=== PATIENT | male | born 1935 | race Caucasian/White ===

== ENCOUNTER → 2020-11-17 10:35 | Outpatient (CLI) | payer OTHER, SELFPAY ==
--- NOTE | ~2020-11-17 | XR_ITS ---
XR abdomen/kub 1V DATE: 11/17/2020 10:49 INDICATION: Recurrent kidney stones TECHNIQUE: AP projection, 2 views COMPARISON: None FINDINGS: Approximately 2.3 x 6.5 mm calcification overlies the lower pole left kidney, possibly a le ft nonobstructing renal calculus. No bowel obstruction. The psoas shadows are intact. No visceromegaly is evident. Diffuse osteopenia. 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 The lung bases appear clear. IMPRESSION: Possible lower pole left renal nephrolithiasis Reviewed, dictated and finalized at [facility]. Reviewed, dictated and finalized at location [facility].
== END ==
PROVIDERS: Visit Provider Urology
DX: N20.0 Calculus of kidney (principal)
CPT/HCPCS: 74018

== ENCOUNTER 2021-06-02 08:58 | Outpatient (CLI) | payer OTHER, SELFPAY | END 2021-06-02 08:59 | disposition home or self-care (01) | LOC: ANHAUDIO 08:59 | PROVIDERS: PCP Emergency Medicine; Visit Provider Emergency Medicine | DX: H91.90 Unspecified hearing loss, unspecified ear (principal) | CPT/HCPCS: 92557; 92567 ==

== ENCOUNTER 2021-10-19 10:23 | Emergency (ER) | payer OTHER, SELFPAY ==
[2021-10-19 10:37] VITALS: BP 147/78; PULSE 73; RESP 18; TEMP 36.8; O2SAT 97
[2021-10-19] MEDS: TETANUS,DIPHTHERIA,AC PERTUSSIS ADULT (0.5 ML) BOOSTRIX IM (11:07)
--- NOTE | 2021-10-19 11:22 | ED.WOUNDLAC ---
HPI - Wound/Laceration General Chief Complaint: Wound/Laceration Stated Complaint: Cut Lower Lt Leg Time Seen by Provider: 10/19/21 11:10 Source: patient, RN notes reviewed and old records reviewed History of Present Illness HPI narrative: 86-year-old male who presents to [facility] with complaints of wound to left lateral lower leg for 2-week duration. Patient states that he scraped his left lower leg on a alanis nail and he has been cleansing wound with antibacterial soap and applying Neosporin ointment with no improvement. Patient states that now he has noticed some redness of tissue around wound. He reports that his tetanus needs updated also. He denies any known fevers chills or sweats. or any increase pain to wound area or left leg. Onset (ago): week(s) (2) Location: other Extremity Location: Left: lower leg (Lateral aspect) Place: home Patient tetanus UTD: No Context: accidental Treatments prior to arrival: other (Neosporin ointment) Related Data Home Medications Medication Instructions Recorded Confirmed cholecalciferol (vitamin D3) 50 50 mcg PO DAILY 12/31/19 10/19/21 mcg (2,000 unit) tablet finasteride 5 mg tablet 5 mg PO DAILY 12/31/19 10/19/21 tamsulosin 0.4 mg capsule See Rx Instructions .ROUTE .COMPLEX 12/31/19 10/19/21 vitamins A,C,F-ixbd-mpocyn 14,320 See Rx Instructions .ROUTE .COMPLEX 12/31/19 10/19/21 unit-226 mg-200 unit capsule Allergies Allergy/AdvReac Type Severity Reaction Status Date / Time No Known Allergies Allergy Verified 10/19/21 10:46 Review of Systems Review of Systems: CONSTITUTIONAL: Denies fever, chills, or sweats. EYES: Denies visual changes, redness, or discharge. ENT: Denies rhinorrhea, congestion, sore throat, or otalgia. CARDIOVASCULAR: Denies chest pain, palpitations, or edema. RESPIRATORY: Denies cough or dyspnea. GASTROINTESTINAL: Denies abdominal pain, nausea, vomiting, or diarrhea. GENITOURINARY: Denies dysuria or hematuria. SKIN: Denies rash or itching.1cmX0.5cm red crusty wound to left anterior lateral lower leg with surrounding redness of skin MUSCULOSKELETAL: Denies back pain, joint pain, or myalgia. NEUROLOGIC: Denies headache, numbness, or weakness. PSYCHIATRIC: Positive history of anxiety or depression. All systems reviewed & are unremarkable except as noted in HPI and below PMFSH Past Medical History Medical History BPH (benign prostatic hyperplasia) H/O renal calculi Hyperglycemia Family History Family History Father Cerebrovascular accident, Onset Age: 77 Mother Family history of Alzheimer's disease, Onset Age: 84 Sibling Family history of pancreatic cancer Social History Social History Social History: Patient drinks 2 cups of coffee per day, and exercises daily. Smoking status: Former smoker Second hand tobacco smoke exposure: No Smoking end date: 08/01/69 Alcohol intake: former Substance use: never Additional living arrangements comments: Patient is Gender identity (if verbalized by the patient): Male Sexual Orientation (if Verbalized by the Patient): Straight or Heterosexual Comments At time of signature, agree with nursing past medical, surgical, social and family history. There is no relevant family history pertinent to the presenting complaint Exam Narrative: GENERAL: Well-appearing, well-nourished, and in no acute distress. HEAD: Normocephalic, atraumatic. EYES: PERRLA and EOMI. ENT: Nares clear, no rhinorrhea or epistaxis. Mucous membranes moist.TM's normal with dull light reflex, throat normal with no lesions or exudates, no tonsil swelling. NECK: Supple. no lymphadenopathy CHEST: Clear to auscultation. No respiratory distress.SAO2 97% on room air HEART: Regular rate and rhythm. No murmur heard. Normal peripheral pulse
== END 2021-10-19 11:37 | disposition home or self-care (01) ==
PROVIDERS: Emergency Provider Registered Nurse; PCP Emergency Medicine
DX: L08.9 Local infection of the skin and subcutaneous tissue, unspecified (principal); S81.802A Unspecified open wound, left lower leg, initial encounter; W45.0XXA Nail entering through skin, initial encounter; Z23 Encounter for immunization; N40.0 Benign prostatic hyperplasia without lower urinary tract symptoms
CPT/HCPCS: 90471; 90715; 99213; G0463

== ENCOUNTER 2021-10-30 10:05 | Emergency (ER) | payer OTHER, SELFPAY ==
[2021-10-30 10:33] VITALS: BP 150/79; PULSE 71; RESP 18; TEMP 36.6; O2SAT 96
--- NOTE | 2021-10-30 10:46 | ED.WOUNDLAC ---
HPI - Wound/Laceration General Chief Complaint: Extremity Injury, Lower Stated Complaint: lt leg pain Time Seen by Provider: 10/30/21 10:40 Source: patient Mode of arrival: ambulatory Limitations: no limitations History of Present Illness HPI narrative: Mr. Ureña is a 86-year-old male patient presenting to the clinic today for a wound recheck to his left lower leg. He reports he was seen approximately 10 days ago and was given a prescription for antibiotics and wanted to come in and have his wound rechecked since he has finished antibiotics and there is still some mild redness. He denies any drainage, increasing pain or increasing swelling. Just finished his antibiotics yesterday. Related Data Home Medications Medication Instructions Recorded Confirmed cholecalciferol (vitamin D3) 50 50 mcg PO DAILY 12/31/19 10/19/21 mcg (2,000 unit) tablet finasteride 5 mg tablet 5 mg PO DAILY 12/31/19 10/19/21 tamsulosin 0.4 mg capsule See Rx Instructions .ROUTE .COMPLEX 12/31/19 10/19/21 vitamins A,C,G-jdkv-grmrkm 14,320 See Rx Instructions .ROUTE .COMPLEX 12/31/19 10/19/21 unit-226 mg-200 unit capsule Allergies Allergy/AdvReac Type Severity Reaction Status Date / Time No Known Allergies Allergy Verified 10/30/21 10:50 Review of Systems Review of Systems: Pertinent positives per HPI. Patient denies any fever, chills, rash, headache, visual changes, dizziness, cough, runny nose, sore throat, shortness of breath, chest pain, palpitations, nausea, vomiting, diarrhea, constipation, abdominal pain, or any urinary issues. [facility] Past Medical History Medical History BPH (benign prostatic hyperplasia) H/O renal calculi Hyperglycemia Family History Family History Father Cerebrovascular accident, Onset Age: 77 Mother Family history of Alzheimer's disease, Onset Age: 84 Sibling Family history of pancreatic cancer Social History Social History Social History: Patient drinks 2 cups of coffee per day, and exercises daily. Smoking status: Former smoker Second hand tobacco smoke exposure: No Smoking end date: 08/01/69 Alcohol intake: former Substance use: never Additional living arrangements comments: Patient is Gender identity (if verbalized by the patient): Male Sexual Orientation (if Verbalized by the Patient): Straight or Heterosexual Comments At the time of my signature, I reviewed and agree with the nursing past medical, surgical, social, and family history. There is no relevant family history pertinent to the patient complaint. Exam Narrative: General: Well-developed, well nourished, in no apparent distress Cardio: Regular rate and rhythm, s1 and s2 normal, no murmur appreciated. Resp: Clear to auscultation bilaterally, no rhonchi, rales, wheezing or rubs. Integumentary: [place], warm, and dry, intact without lesion, no rashes. Mild redness and swelling without induration to the left lower lateral/anterior leg without discharge, tenderness, or streaking. Has a healthy appearing scab noted over the wound. Course Course Emergency Course: Portions of this record may have been created with voice recognition software. Level of Care: Express Care Visit Vital Signs Vital signs: Vital Signs Temperature 36.6 C 10/30/21 10:33 Pulse Rate 71 10/30/21 10:33 Respiratory Rate 18 10/30/21 10:33 Blood Pressure 150/79 H 10/30/21 10:33 Pulse Oximetry 96 10/30/21 10:33 Temperature 36.6 C 10/30/21 10:33 Pulse Rate 71 10/30/21 10:33 Respiratory Rate 18 10/30/21 10:33 Blood Pressure 150/79 H 10/30/21 10:33 Pulse Oximetry 96 10/30/21 10:33 Vital signs reviewed MDM - Wound/Laceration MDM Narrative Medical decision making narrative: At the time of assessment chinyere
== END 2021-10-30 10:54 | disposition home or self-care (01) ==
PROVIDERS: Emergency Provider Nurse Practitioner Family; PCP Emergency Medicine
DX: S81.802D Unspecified open wound, left lower leg, subsequent encounter (principal); X58.XXXD Exposure to other specified factors, subsequent encounter; N40.0 Benign prostatic hyperplasia without lower urinary tract symptoms; Z87.891 Personal history of nicotine dependence
CPT/HCPCS: 99211; G0463

== ENCOUNTER 2021-12-30 17:32 | Emergency (ER) | payer OTHER, SELFPAY ==
--- NOTE | 2021-12-30 17:35 | ED.URI ---
HPI - URI/Sore Throat General Chief Complaint: Upper Respiratory Infection Stated Complaint: fever,congestion Time Seen by Provider: 12/30/21 17:35 Source: patient Mode of arrival: ambulatory Limitations: no limitations History of Present Illness HPI Narrative: Mr. Ureña is a an 86-year-old male patient presenting to the clinic today with complaints of nasal congestion and pressure for a couple months. He reports that he just felt feverish a couple days ago and reports that he cannot smell. He is having a nonproductive cough with this and blowing out yellow nasal drainage. He denies any headaches. He denies any known exposure to anyone with COVID, influenza, or strep. He would like COVID testing. MD elicited complaint: fever, cough, nasal congestion and sinus pain Related Data Home Medications Medication Instructions Recorded Confirmed cholecalciferol (vitamin D3) 50 50 mcg PO DAILY 12/31/19 12/30/21 mcg (2,000 unit) tablet finasteride 5 mg tablet 5 mg PO DAILY 12/31/19 12/30/21 tamsulosin 0.4 mg capsule See Rx Instructions .Route .COMPLEX 12/31/19 12/30/21 vitamins A,C,Y-ijpi-ilnxbl 14,320 See Rx Instructions .Route .COMPLEX 12/31/19 12/30/21 unit-226 mg-200 unit capsule (PreserVision AREDS) Allergies Allergy/AdvReac Type Severity Reaction Status Date / Time No Known Allergies Allergy Verified 12/30/21 17:52 Review of Systems Review of Systems: Pertinent positives per HPI. Patient denies any rash, headache, visual changes, dizziness, sore throat, shortness of breath, chest pain, palpitations, nausea, vomiting, diarrhea, constipation, abdominal pain, or any urinary issues. [facility] Past Medical History Medical History (Updated 12/30/21 @ 17:55 by Saturnino Brizuela APRN) BPH (benign prostatic hyperplasia) H/O renal calculi Hyperglycemia Family History Family History Father Cerebrovascular accident, Onset Age: 77 Mother Family history of Alzheimer's disease, Onset Age: 84 Sibling Family history of pancreatic cancer Social History Social History Social History: Patient drinks 2 cups of coffee per day, and exercises daily. Smoking status: Former smoker Second hand tobacco smoke exposure: No Smoking end date: 08/01/69 Alcohol intake: former Substance use: never Additional living arrangements comments: Patient is Gender identity (if verbalized by the patient): Male Sexual Orientation (if Verbalized by the Patient): Straight or Heterosexual Comments At the time of my signature, I reviewed and agree with the nursing past medical, surgical, social, and family history. There is no relevant family history pertinent to the patient complaint. Exam Narrative: General: Well-developed, well nourished, in no apparent distress Head: Normocephalic, atraumatic Eyes: Pupils equally round and reactive to light bilaterally, EOM intact, sclera and conjunctive clear, no discharge, lids normal Ears: TMs intact and clear, ear canals clear, no drainage, grossly hearing normal. Nose: Nares patent, yellow discharge, moderate inflammation, sinus tenderness over the maxillary and frontal sinuses Mouth: Oral pharynx without lesions or masses, good dentition, MMM. Postnasal drip Neck: Supple, trachea midline, no enlargement of anterior or posterior cervical nodes, no thyroid masses or goiter palpable. Cardio: Regular rate and rhythm, s1 and s2 normal, no murmur appreciated. Resp: Clear to auscultation bilaterally, no rhonchi, rales, wheezing or rubs Course Course Emergency Course: Portions of this record may have been created with voice recognition software. Level of Care: Express Care Visit Vital Signs Vital signs: Vital signs reviewed MDM - URI/Sore Throat MDM Narrative Medical decision making narrative: At the time of visit renata
[2021-12-30 17:47] VITALS: BP 168/64; PULSE 83; RESP 18; TEMP 36.6; O2SAT 96
== END 2021-12-30 18:11 | disposition home or self-care (01) ==
PROVIDERS: Emergency Provider Nurse Practitioner Family; PCP Emergency Medicine
DX: J32.0 Chronic maxillary sinusitis (principal); Z87.891 Personal history of nicotine dependence; Z20.822 Contact with and (suspected) exposure to COVID-19
CPT/HCPCS: 87426; 99213; C9803; G0463

== ENCOUNTER 2022-01-10 12:21 | Emergency (ER) | payer OTHER, SELFPAY ==
--- NOTE | ~2022-01-10 | XR_ITS ---
EXAMINATION: XR chest 2V Exam Date/Time: 01/10/2022 13:02 CDT HISTORY: cough, congestion Comparison: Rib x-rays 11/28/2014. RESULT: Lines, tubes, and devices: None. Lungs and pleura: Ill-defined mid and lower lung groundglass opacities, greater on the right. Nodula r opacity in the right upper lung measuring 1.7 cm. Cardiomediastinal silhouette: Stable cardiomediastinal silhouette. Other: No acute osseous or upper abdominal finding. IMPRESSION: Pulmonary opacities may reflect summation artifact versus atypical/viral infection. Right upper lobe pulmonary nodule, recommend nonemergent, outpatient noncontrasted chest CT for further evaluation. Reviewed, dictated and finalized at location [facility]. IMPRESSION: Pulmonary opacities may reflect summation artifact versus atypical/viral infect ion. Right upper lobe pulmonary nodule, recommend nonemergent, outpatient nonco ntrasted chest CT for further evaluation.
[2022-01-10 12:43] VITALS: BP 146/61; PULSE 69; RESP 18; TEMP 37.1; O2SAT 96
--- NOTE | 2022-01-10 13:30 | ED.GENADULT ---
HPI - General Adult General Chief complaint: Upper Respiratory Infection Stated complaint: cough,chest congestion Source: patient Mode of arrival: ambulatory Limitations: no limitations History of Present Illness HPI narrative: Patient presents for evaluation of respiratory symptoms. He was evaluated here on 12/30/2021 for sinus congestion, loss of sense of taste and smell. He was COVID-negative. He was diagnosed with maxillary sinusitis and discharged with Augmentin. He completed the medication without improvement in his symptoms thereafter. Currently reports sinus congestion, clear rhinorrhea, loss of sense of taste or smell and nonproductive cough. He denies any fever, chills, nausea, vomiting, otalgia, sore throat, shortness of breath or chest pain. He is not taking any medications for his symptoms. No recent sick contacts. He is a former smoker. No hx of COVID. He has received COVID vaccination x 2 and his booster. No additional complaints or concerns. Related Data Home Medications Medication Instructions Recorded Confirmed cholecalciferol (vitamin D3) 50 50 mcg PO DAILY 12/31/19 01/10/22 mcg (2,000 unit) tablet finasteride 5 mg tablet 5 mg PO DAILY 12/31/19 01/10/22 tamsulosin 0.4 mg capsule See Rx Instructions .Route .COMPLEX 12/31/19 01/10/22 vitamins A,C,P-qsol-wsjwkj 14,320 See Rx Instructions .Route .COMPLEX 12/31/19 01/10/22 unit-226 mg-200 unit capsule (PreserVision AREDS) Allergies Allergy/AdvReac Type Severity Reaction Status Date / Time No Known Allergies Allergy Verified 01/10/22 12:52 Review of Systems Review of Systems: CONSTITUTIONAL: Denies fever, chills, or sweats. EYES: Denies visual changes, redness, or discharge. ENT: Reports loss of sense of taste and smell. Reports sinus congestion and clear rhinorrhea. CARDIOVASCULAR: Denies chest pain, palpitations, or edema. RESPIRATORY: Reports nonproductive cough. Denies dyspnea. GASTROINTESTINAL: Denies abdominal pain, nausea, vomiting, or diarrhea. GENITOURINARY: Denies dysuria or hematuria. SKIN: Denies rash or itching. MUSCULOSKELETAL: Denies back pain, joint pain, or myalgia. NEUROLOGIC: Denies headache, numbness, dizziness, or weakness. PSYCHIATRIC: Denies anxiety or depression. [facility] Past Medical History Medical History (Updated 01/10/22 @ 13:45 by Yovanny Benitez [facility], ) BPH (benign prostatic hyperplasia) H/O renal calculi History of prostate cancer Hyperglycemia Surgical History Surgical History No pertinent past surgical history Family History Family History Father Cerebrovascular accident, Onset Age: 77 Heart disease Acute myocardial infarction Mother Family history of Alzheimer's disease, Onset Age: 84 Sibling Family history of pancreatic cancer Social History Social History Social History: Patient drinks 2 cups of coffee per day, and exercises daily. Smoking status: Former smoker Second hand tobacco smoke exposure: No Smoking end date: 08/01/69 Alcohol intake: former Substance use: never Living arrangements: alone Additional living arrangements comments: Patient is Gender identity (if verbalized by the patient): Male Sexual Orientation (if Verbalized by the Patient): Straight or Heterosexual Spiritual care concerns: No Exam Narrative: GENERAL: Well-appearing, well-nourished, and in no acute distress. HEAD: Normocephalic, atraumatic. EYES: PERRLA and EOMI. ENT: Nares clear, no rhinorrhea or epistaxis. Mucous membranes moist. Oropharynx without tonsillar hypertrophy exudate or other lesions. Bilateral TMs pearly botello nonbulging NECK: Supple. No adenopathy or masses. No carotid bruits or JVD CHEST: Clear to auscultation. No respiratory distress. No wheezes rales or
== END 2022-01-10 13:53 | disposition home or self-care (01) ==
PROVIDERS: Emergency Provider Nurse Practitioner; PCP Emergency Medicine
DX: U07.1 COVID-19 (principal); Z87.891 Personal history of nicotine dependence; R91.1 Solitary pulmonary nodule; N40.0 Benign prostatic hyperplasia without lower urinary tract symptoms; Z85.46 Personal history of malignant neoplasm of prostate
CPT/HCPCS: 71046; 87426; 87804; 99213; C9803; G0463

== ENCOUNTER 2022-01-18 10:41 | Outpatient (CLI) | payer OTHER, SELFPAY ==
--- NOTE | 2022-01-18 11:30 | ECG_ITS ---
Measurements Intervals [place] Rate: 73 P: [place]: 0 QRS: 1 QRSD: 139 T: 13 QT: 412 QTc: 456 Interpretive Statements SINUS RHYTHM WITH FREQUENT PREMATURE ATRIAL CONTRACTIONS POSSIBLE JUNCTIONAL ESCAPE BEAT NONSPECIFIC INTRAVENTRICULAR CONDUCTION DELAY CANNOT RULE OUT ANTERIOR MYOCARDIAL INFARCTION, AGE INDETERMINATE NONSPECIFIC ST AND T-WAVE ABNORMALITY ABNORMAL ECG NO PREVIOUS ECG AVAILABLE FOR COMPARISON Electronically Signed On 01-18-2022 14:47:38 CDT by Henry Good M.D.
== END 2022-01-18 10:42 | disposition home or self-care (01) ==
PROVIDERS: PCP Emergency Medicine; Visit Provider Emergency Medicine
DX: R42 Dizziness and giddiness (principal); I45.9 Conduction disorder, unspecified
CPT/HCPCS: 93005

== ENCOUNTER 2022-01-20 16:02 | Outpatient (CLI) | payer OTHER, SELFPAY ==
--- NOTE | ~2022-01-20 | CT_ITS ---
EXAMINATION:CT diagnostic chest wo con DATE: 01/20/2022 16:25 INDICATION: Right upper lobe pulmonary nodule. TECHNIQUE: Computed tomography (CT) of the chest was performed without intravenous contrast. Automate d exposure control and iterative reconstruction technique were employed. The dose-length product (DLP ) was 69.23 mGy-cm. COMPARISON: Chest 2 views 01/10/2022 FINDINGS: There is mild scarring at the lung apices. There is a 12 mm nodule in right upper lobe. The re is a 4 mm nodule at minor fissure. There is a 3 mm nodule in left upper lobe. No pleural effusion. The heart size is normal. There are coronary artery calcifications. No pericardial effusion. There i s mild bilateral gynecomastia. There are gallstones in the gallbladder, which is normal in size. Ther e is mild thoracic spondylosis. There is mild atelectasis bilaterally. IMPRESSION: 1. 12 mm nodule in right lung upper lobe suspicious for primary bronchogenic carcinoma. CT-guided bio psy is recommended. Reviewed, dictated and finalized at location [facility]. IMPRESSION: 1. 12 mm nodule in right lung upper lobe suspicious for primary bronchogenic ca rcinoma. CT-guided biopsy is recommended.
== END 2022-01-20 16:03 | disposition home or self-care (01) ==
PROVIDERS: PCP Emergency Medicine; Visit Provider Emergency Medicine
DX: R91.1 Solitary pulmonary nodule (principal)
CPT/HCPCS: 71250

== ENCOUNTER 2022-03-02 07:31 | Outpatient (CLI) | payer OTHER, SELFPAY ==
--- NOTE | 2022-03-02 07:39 | ECHO_ITS ---
Patient Info Name: Apolinar Ureña Age: 87 years : 1935 Gender: Male Ht: 67 in Wt: 135 lbs BSA: 1.70 m2 HR: 65 bpm BP: 158 / 71 mmHg Heart Rhythm: Sinus Rhythm Technical Quality: Fair Exam Date: 03/02/2022 7:50 AM Exam Location: [facility] Patient Status: Outpatient Admit Date: 03/02/2022 Staff Ordering Physician: Josué Waddell DO Ticket Sales Agent: Renetta Altamirano RDCS Attending Provider: Josué Waddell DO Referring Physician: Bairon DANEIL; Exam Type: CA echo doppler color flow Study Info Indications - palpitations Complete two-dimensional, color flow and Doppler transthoracic echocardiogram is performed. Summary 1. Complete two-dimensional, color flow and Doppler transthoracic echocardiogram is performed. 2. Left ventricular chamber dimension is severely enlarged. 3. Left ventricular systolic function is severely reduced, estimated at 30-35%. 4. Left ventricular septal wall motion is abnormal with septal motion related to bundle branch block. 5. The left ventricular diastolic function is grade I diastolic dysfunction. 6. E/e' 16 is elevated. 7. There is mild aortic valve regurgitation. 8. There is mild mitral valve regurgitation. 9. There is mild tricuspid valve regurgitation. 10. No pulmonary hypertension, estimated pulmonary arterial systolic pressure is 38 mmHg. 11. There is mild pulmonic regurgitation. Left Ventricle E/e' 16 is elevated. Left ventricular chamber dimension is severely enlarged. Left ventricular systolic function is severely reduced, estimated at 30-35%. Left ventricular septal wall motion is abnormal with septal motion related to bundle branch block. The left ventricular diastolic function is grade I diastolic dysfunction. Right Ventricle Right ventricular systolic function is normal and with normal TAPSE 2.5 cm. Right ventricular chamber dimension is normal. Left Atria Left atrial chamber dimension is normal. Right Atria Right atrial chamber dimension is normal. Aortic Valve The aortic valve is trileaflet. There is no aortic valve stenosis. There is mild aortic valve regurgitation. Pulmonic Valve There is mild pulmonic regurgitation. Mitral Valve There is no mitral valve stenosis. There is mild mitral valve regurgitation. Tricuspid Valve There is mild tricuspid valve regurgitation. No pulmonary hypertension, estimated pulmonary arterial systolic pressure is 38 mmHg. Pericardium/Pleural There is no pericardial effusion. Inferior Vena Cava Normal inferior vena cava with >50% collapse upon inspiration consistent with normal right atrial pressure, 5 mmHg. Aorta The aortic root size at the sinus of Valsalva is normal. Left Ventricular Outflow Tract Name Value Normal LVOT 2D LVOT Diameter 2.0 cm LVOT Doppler LVOT Peak Gradient 3 mmHg LVOT Mean Gradient 1 mmHg LVOT VTI 14 cm LVOT VTI/AV VTI Ratio 0.5 LVOT Stroke Volume 46 ml LVOT CO 2.4 l/min
== END 2022-03-02 07:32 | disposition home or self-care (01) ==
PROVIDERS: PCP Emergency Medicine; Visit Provider Internal Medicine Cardiovascular Disease
DX: R00.2 Palpitations (principal); I34.0 Nonrheumatic mitral (valve) insufficiency; I35.1 Nonrheumatic aortic (valve) insufficiency; I36.1 Nonrheumatic tricuspid (valve) insufficiency
CPT/HCPCS: 93306

== ENCOUNTER 2022-03-19 08:06 | Outpatient (CLI) | payer OTHER, SELFPAY ==
--- NOTE | ~2022-03-19 | NM_ITS ---
EXAMINATION: NM tommy stress w perfusion DATE: 03/19/2022 10:38 INDICATION: Heart disease TECHNIQUE: Rest images were obtained following intravenous administration of 10.3 mCi Tc99m tetrofosm in (Myoview). The patient was infused intravenously with Lexiscan (Regadenoson). Then, 32.7 mCi Tc99m tetrofosmin (Myoview) was administered intravenously, and stress images were obtained in supine posi tion. Repeat post stress images were obtained in prone position. Data was reconstructed into short ax is and horizontal and vertical long axis SPECT images. Gated SPECT images were also obtained. COMPARISON: None. FINDINGS: Small mild nonreversible perfusion defect consistent with infarct at the apical septal segm ent with adjacent mild reversible ischemia at the mid anteroseptal segment. Mild left ventricular enl argement with calculated end-diastolic volume of 179 mm. There is global hypokinesis with mild to mod erately decreased left ventricular ejection fraction measuring 31%. IMPRESSION: 1. Small region of mild ischemia at the mid anteroseptal wall contiguous with a small nonreversible i nfarct at the apical septal segment. 2. Mild left ventricular enlargement and global hypokinesis with mild to moderately decreased left ve ntricular ejection fraction measuring 31%. Reviewed, dictated and finalized at location A. IMPRESSION: 1. Small region of mild ischemia at the mid anteroseptal wall contiguous with a small nonreversible infarct at the apical septal segment. 2. Mild left ventricular enlargement and global hypokinesis with mild to modera tely decreased left ventricular ejection fraction measuring 31%.
--- NOTE | 2022-03-19 08:28 | EST_ITS ---
Patient Info Name: Apolinar Ureña Age: 87 years : 1935 Gender: Male Ht: 67 in Wt: 140 lbs BSA: 1.73 m2 HR: 69 bpm BP: 119 / 84 mmHg Heart Rhythm: Left Bundle Branch Block Exam Date: 03/19/2022 9:23 AM Exam Location: [facility] Stress Patient Status: Outpatient Admit Date: 03/19/2022 Staff Ordering Physician: Josué Waddell DO Attending Provider: Josué Waddell DO Exercise Technologist: Sharon Wu CT Exercise Physician: Josué Waddell DO Exam Type: CA stress tommy w NM Study Info Indications Z13.6 - Encounter for screening for cardiovascular disorders A regadenoson stress test was performed. Summary 1. 1. Inconclusive lexiscan stress test for ischemic ST changes by ECG criteria due to baseline LBBB. 2. 2. Stable hemodynamics throughout the test. 3. 3. Nuclear scan to follow and will be reported separately. Please correlate with it. 4. 4. Patient informed of the above results. Protocol: Lexiscan Stress ECG Details Stage: REST Duration (min): 2 min : 18 sec HR (bpm): 67 SBP (mmHg): 119 DBP (mmHg): 84 Stage: REST Duration (min): 18 min : 30 sec HR (bpm): 66 SBP (mmHg): 119 DBP (mmHg): 84 Stage: STAGE 1 Duration (min): 1 min : 0 sec HR (bpm): 75 SBP (mmHg): 137 DBP (mmHg): 99 Stage: RECOVERY Duration (min): 1 min : 0 sec HR (bpm): 84 SBP (mmHg): 137 DBP (mmHg): 99 Stage: RECOVERY Duration (min): 2 min : 0 sec HR (bpm): 80 SBP (mmHg): 137 DBP (mmHg): 99 Stage: RECOVERY Duration (min): 3 min : 0 sec HR (bpm): 79 SBP (mmHg): 165 DBP (mmHg): 90 Stage: RECOVERY Duration (min): 3 min : 7 sec HR (bpm): 76 SBP (mmHg): 165 DBP (mmHg): 90 Rest HR: 66 bpm Peak HR: 88 bpm Rest Sys BP: 119 mmHg Peak Sys BP: 165 mmHg Max Pred HR: 135 bpm % Max Pred HR: 65 % Target HR: 115 bpm Max RPP: 14,520 bpm*mmHg Termination Reason: Completed protocol Cardiac Symptoms: Shortness of breath Total Time: 1 min : 0 sec Rest Vuong BP: 84 mmHg Peak Vuong BP: 90 mmHg Total Dose: 0.4 mg Resting ECG Sinus rhythm, LBBB. Stress ECG No ST changes. Arrhythmias None. Report Signatures
== END 2022-03-19 08:07 | disposition home or self-care (01) ==
PROVIDERS: PCP Emergency Medicine; Visit Provider Internal Medicine Cardiovascular Disease
DX: Z13.6 Encounter for screening for cardiovascular disorders (principal); I51.89 Other ill-defined heart diseases
CPT/HCPCS: 78452; 93017; A9502

== ENCOUNTER 2022-06-17 13:31 | Outpatient (CLI) | payer OTHER, SELFPAY ==
--- NOTE | 2022-06-17 13:56 | ECHO_ITS ---
Patient Info Name: Apolinar Ureña Age: 87 years : 1935 Gender: Male Ht: 67 in Wt: 145 lbs BSA: 1.77 m2 HR: 69 bpm BP: 121 / 64 mmHg Technical Quality: Good Exam Date: 06/17/2022 2:24 PM Exam Location: [facility] Patient Status: Outpatient Admit Date: 06/17/2022 Staff Ordering Physician: Josué Waddell DO Developer Evangelist: Elaine Guajardo RDCS Attending Provider: Josué Waddell DO Referring Physician: Bairon DANIEL; Exam Type: CA echo doppler color flow Study Info Indications I51.9 - Heart disease, unspecified Complete two-dimensional, color flow and Doppler transthoracic echocardiogram is performed. Summary 1. Complete two-dimensional, color flow and Doppler transthoracic echocardiogram is performed. 2. Left ventricular chamber dimension is moderately enlarged. 3. Left ventricular systolic function is moderately reduced, estimated at 35-40%. 4. There is mildly increased left ventricular wall thickness. 5. The left ventricular diastolic function is grade II diastolic dysfunction. 6. E/e' 10 is mildly elevated. 7. Global longitudinal strain is abnormal at -10.8%. 8. Left atrial chamber dimension is mildly enlarged. 9. Right atrial chamber dimension is mildly enlarged. 10. There is mild aortic valve sclerosis. 11. There is mild aortic valve regurgitation. 12. There is mild mitral valve regurgitation. 13. There is mild tricuspid valve regurgitation. 14. Moderate pulmonary hypertension, estimated pulmonary arterial systolic pressure is 50 mmHg. 15. Small atheroma in posterior aortic root. 16. Dilated inferior vena cava with <50% collapse upon inspiration consistent with significantly elevated right atrial pressure, 15 mmHg. Left Ventricle E/e' 10 is mildly elevated. Global longitudinal strain is abnormal at -10.8%. Left ventricular chamber dimension is moderately enlarged. Left ventricular systolic function is moderately reduced, estimated at 35-40%. There is mildly increased left ventricular wall thickness. The left ventricular diastolic function is grade II diastolic dysfunction. Right Ventricle Right ventricular chamber dimension is normal. Right ventricular systolic function is normal. Left Atria Left atrial chamber dimension is mildly enlarged. Right Atria Right atrial chamber dimension is mildly enlarged. Aortic Valve The aortic valve is trileaflet. There is mild aortic valve sclerosis. There is no aortic valve stenosis. There is mild aortic valve regurgitation. Pulmonic Valve There is no pulmonic regurgitation. Mitral Valve There is no mitral valve stenosis. There is mild mitral valve regurgitation. Tricuspid Valve There is mild tricuspid valve regurgitation. Moderate pulmonary hypertension, estimated pulmonary arterial systolic pressure is 50 mmHg. Pericardium/Pleural There is no pericardial effusion. Inferior Vena Cava Dilated inferior vena cava with <50% collapse upon inspiration consistent with significantly elevated right atrial pressure, 15 mmHg. Aorta Small atheroma in posterior aortic root. The aortic root size at the sinus of Valsalva is normal. Left Ventricular Outflow Tract Name Value Normal LVOT 2D LVOT Diameter 2.0 cm
== END 2022-06-17 13:32 | disposition home or self-care (01) ==
PROVIDERS: PCP Emergency Medicine; Visit Provider Internal Medicine Cardiovascular Disease
DX: I08.3 Combined rheumatic disorders of mitral, aortic and tricuspid valves (principal)
CPT/HCPCS: 93306

== ENCOUNTER 2023-06-03 08:29 | Outpatient (CLI) | payer OTHER, SELFPAY ==
--- NOTE | 2023-06-03 08:40 | ECHO_ITS ---
Patient Info Name: Apolinar Ureña Age: 88 years : 1935 Gender: Male Ht: 67 in Wt: 145 lbs BSA: 1.77 m2 HR: 78 bpm BP: 166 / 83 mmHg Technical Quality: Fair Exam Date: 06/03/2023 9:10 AM Exam Location: [facility] Patient Status: Outpatient Admit Date: 06/03/2023 Staff Ordering Physician: Josué Waddell DO Airplane Inspector: Billie Auguste RDCS Attending Provider: Josué Waddell DO Referring Physician: Bairon DANIEL; Exam Type: CA echo doppler color flow Study Info Indications I51.9 - Heart disease, unspecified Complete two-dimensional, color flow and Doppler transthoracic echocardiogram is performed. Summary 1. Complete two-dimensional, color flow and Doppler transthoracic echocardiogram is performed. 2. Left ventricular chamber dimension is moderately enlarged. 3. Left ventricular systolic function is severely reduced, estimated at 20-25%. 4. The left ventricular diastolic function is grade I diastolic dysfunction. 5. E/e' 16 is elevated. 6. Global longitudinal strain is abnormal at -14.3%. 7. Left atrial chamber dimension is moderately enlarged. 8. Right atrial chamber dimension is moderately enlarged. 9. There is mild aortic valve sclerosis. 10. There is mild aortic valve regurgitation. 11. There is mild to moderate mitral valve regurgitation. 12. There is mild tricuspid valve regurgitation. 13. Mild pulmonary hypertension, estimated pulmonary arterial systolic pressure is 41 mmHg. 14. There is trace pulmonic regurgitation. 15. Dilated inferior vena cava with >50% collapse upon inspiration consistent with elevated right atrial pressure, 10 mmHg. Left Ventricle E/e' 16 is elevated. Global longitudinal strain is abnormal at -14.3%. Left ventricular chamber dimension is moderately enlarged. Left ventricular systolic function is severely reduced, estimated at 20-25%. The left ventricular diastolic function is grade I diastolic dysfunction. Right Ventricle Right ventricular systolic function is normal and with normal TAPSE 2.4 cm. Right ventricular chamber dimension is normal. Left Atria Left atrial chamber dimension is moderately enlarged. Right Atria Right atrial chamber dimension is moderately enlarged. Aortic Valve The aortic valve is trileaflet. There is mild aortic valve sclerosis. There is no aortic valve stenosis. There is mild aortic valve regurgitation. Pulmonic Valve There is trace pulmonic regurgitation. Mitral Valve There is no mitral valve stenosis. There is mild to moderate mitral valve regurgitation. Tricuspid Valve There is mild tricuspid valve regurgitation. Mild pulmonary hypertension, estimated pulmonary arterial systolic pressure is 41 mmHg. Pericardium/Pleural There is no pericardial effusion. Inferior Vena Cava Dilated inferior vena cava with >50% collapse upon inspiration consistent with elevated right atrial pressure, 10 mmHg. Aorta The aortic root size at the sinus of Valsalva is normal. Left Ventricular Outflow Tract Name Value Normal LVOT 2D LVOT Diameter 2.0 cm LVOT Doppler LVOT Peak Gradient 4 mmHg LVOT Mean Gradient 2 mmHg LVOT VTI 21 cm LVOT VTI/AV
== END 2023-06-03 08:30 | disposition home or self-care (01) ==
PROVIDERS: Visit Provider Internal Medicine Cardiovascular Disease
DX: I08.3 Combined rheumatic disorders of mitral, aortic and tricuspid valves (principal)
CPT/HCPCS: 93306

== ENCOUNTER 2023-06-27 01:50 | Day surgery (SDC) | payer OTHER, SELFPAY ==
[2023-06-27] VITALS (25 sets, daily range): BP systolic 112–157; BP diastolic 47–85; PULSE 53–80; RESP 13–20; TEMP 36.9; O2SAT 93–98; BMI 22.1
[2023-06-27 09:01] LABS: Basophils Absolute Auto 0.1 K/mm3 (0.0-0.1); Basophils Percent Auto 1.2 % (0.2-1.2); Eosinophils Absolute Auto 0.5 K/mm3 (0-0.3); Eosinophils Percent Auto 7.3 % (0-4.4); Hematocrit 45.2 % (42.0-52.0); Hemoglobin 14.6 g/dL (14.0-18.0); Immature Granulocyte Absolute 0.02 K/mm3 (0.00-0.031); Immature Granulocyte Percent A 0.3 % (0-0.5); Lymphocytes Absolute Auto 1.77 K/mm3 (0.9-3.2); Lymphocytes Percent Auto 27.4 % (18.3-44.2); Mean Corpuscular HGB Conc 32.3 g/dl (32-36); Mean Corpuscular Hemoglobin 30.3 pg (26-34); Mean Corpuscular Volume 93.8 fl (80-100); Mean Platelet Volume 10.9 fl (7.4-10.4); Monocytes Absolute Auto 0.7 K/mm3 (0.1-0.6); Monocytes Percent Auto 11.5 % (2.6-8.5); Neutrophils Absolute Auto 3.4 K/mm3 (1.3-6.7); Neutrophils Percent Auto 52.3 % (45.5-73.1); Platelet Count Result 272 k/mm3 (150-375); Red Blood Count 4.82 M/mm3 (4.6-6.20); Red Cell Distribution Width 14.4 % (11.5-14.5); White Blood Count 6.5 K/mm3 (4.5-10.0)
[2023-06-27 09:14] LABS: Anion Gap 7 mmol/L (8-16); Blood Urea Nitrogen 15 mg/dL (9-20); Calcium 9.2 mg/dL (8.4-10.2); Carbon Dioxide 27 mmol/L (22-30); Chloride 106 mmol/L (98-107); Estimated Glomerular Filt Rate > 60; Glucose 140 mg/dL (65-110); Potassium 3.9 mmol/L (3.4-5.0); Sodium 140 mmol/L (137-145)
--- NOTE | 2023-06-27 10:53 | WPDMODSED ---
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 Present Complaint: no complaint Procedure to be performed/Plan: left heart catheterization Allergies Allergy/AdvReac Type Severity Reaction Status Date / Time No Known Allergies Allergy Verified 06/27/23 08:55 Home Medications Medication Instructions Recorded Confirmed Type cholecalciferol (vitamin D3) 50 50 mcg PO DAILY 12/31/19 06/27/23 History mcg (2,000 unit) tablet finasteride 5 mg tablet 5 mg PO HS 12/31/19 06/27/23 History tamsulosin 0.4 mg capsule See Rx Instructions .Route .COMPLEX 12/31/19 06/27/23 History vitamins A,C,M-tbid-byitgt 4,296 See Rx Instructions .Route .COMPLEX 12/31/19 06/27/23 History mcg-226 mg-90 mg capsule (PreserVision AREDS) fluticasone propionate 50 2 spray intranasal PRN PRN Allergy 02/02/22 06/27/23 History mcg/actuation nasal Symptoms spray,suspension carvedilol 3.125 mg tablet 3.125 mg PO Q12H #60 tabs 06/09/23 06/27/23 Rx sacubitril 24 mg-valsartan 26 mg 1 tablet PO DAILY 06/27/23 06/27/23 History tablet (Entresto) Current Medications: Active Medications Sodium Chloride (Normal Saline Iv) 500 mls @ 100 mls/hr IV CONT .Q5H HECTOR Sedation/Anesthesia: No previous sedation/anesthesia problems (including family history). FOR[facility]LY [facility] Past Medical History Medical History BPH (benign prostatic hyperplasia) H/O renal calculi History of prostate cancer Hyperglycemia Surgical History Surgical History No pertinent past surgical history Family History Family History Father Cerebrovascular accident, Onset Age: 77 Heart disease Acute myocardial infarction Mother Family history of Alzheimer's disease, Onset Age: 84 Sibling Family history of pancreatic cancer Social History Social History Social History: Patient drinks 2 cups of coffee per day, and exercises daily. Smoking status: Former smoker Second hand tobacco smoke exposure: No Smoking end date: 08/01/69 Alcohol intake: former Substance use: never Living arrangements: alone Additional living arrangements comments: Patient is Occupation/Education: retired Gender identity (if verbalized by the patient): Male Sexual Orientation (if Verbalized by the Patient): Straight or Heterosexual Spiritual care concerns: No Mod Sed Physical Exam Physical Exam Pre Procedural Exam: Normal: Appearance ( pleasant elderly man appears his stated age), Throat, Airway, Lungs, Heart Rate, Heart Rhythm, Neuro Exam and Extremities and Variation: Heart Size ( PMI laterally displaced) Hours since solid foods: 12 Hours since liquid intake: 12 Mallampati Classification: class II Internal Medicine - PN: Obj Da Vital Signs Vital Signs: Vital Signs - 24 hr 06/27/23 09:01 Temperature 36.9 C Pulse Rate 75 Respiratory Rate 13 Blood Pressure 148/76 H Pulse Oximetry 96 Oxygen Delivery Room Air Meds/Results Medications: Active Medications Generic Name Dose Route Start Last Admin Trade Name Priyankq PRN Reason Stop Dose Admin Sodium Chloride 500 mls @ 100 mls/hr 06/27/23 08:30 Normal Saline Iv IV CONT .Q5H HECTOR Labs 06/27/23 08:53 06/27/23 08:53 Labs: Laboratory Results - last 24 hr 06/27/23 08:53 WBC 6.5 RBC 4.82 Hgb 14.6 Hct 45.2 MCV 93.8 MCH 30.3 MCHC 32.3 RDW 14.4 Plt Count 272 MPV 10.9 H Immature Gran % (Auto) 0.3 Neut % (Auto) 52.3 Lymph % (Auto) 27.4 [place] % (Auto) 11.5 H Eos % (Auto) 7.3 H Baso % (Auto) 1.2 Lymph # (Auto) 1.77 [place] # (Auto) 0.7 H Eos # (Auto) 0.5 H Baso # (Auto) 0.1 Abs Immat Gran (auto) 0.02 Absolute Neuts (aut
--- NOTE | 2023-06-27 11:36 | WPDCARDPROC ---
Cardiac Cath Procedure Note Date of procedure:: 06/27/23 Performing physician:: Shaheen Luevano MD Indication:: left ventricular systolic dysfunction Brief clinical history:: this is an 88-year-old man with a history of left ventricular systolic dysfunction being treated medically. he has been referred for catheterization to rule out an ischemic basis for his myopathy. He is not reporting any anginal-type chest pain. Procedure Procedure performed:: Left ventriculogram coronary angiogram Sedation/Medication given:: fentanyl 25 mg Versed 2 mg case start time 11:20 a.m. case end time 11:33 a.m. sedation provided by Leilani Syed RN, trained observer Access site:: right femoral artery Estimated blood loss:: 20 cc Procedure note:: patient was brought to the cardiac catheterization lab in the postabsorptive state where the right femoral triangle was prepped and draped in the usual fashion. Anesthesia was provided with 1% lidocaine infiltrated locally. He has a modified Seldinger technique a 5 [place] sheath was placed into the right femoral artery. After this left heart catheterization was carried out. A 5 [place] angled pigtail catheter was used to measure left-sided hemodynamics and to inject the left ventriculogram in the 30 degree MCDANIELS projection. Following this standard 5 [place] FL4 catheter was used to engage and inject the left coronary artery in multiple projections and then a 5 [place] JR4 catheter was used to engage and inject the right coronary artery. Following this the case was terminated the cineangiograms were reviewed. An angiogram was performed to the femoral artery through the sheath after which it was elected to have the sheath removed with direct manual compression. Patient tolerated the procedure well there were no apparent complications and there was no evidence of groin hematoma upon leaving the labor service representative. Findings:: Hemodynamics: Aortic pressure 158 over 76 left ventricle 150 over 0 end-diastolic pressure 12 there was no gradient on pullback across the aortic valve. Left ventricle: The LV is mildly to moderately dilated there is global hypokinesia noted with an ejection fraction I would visually estimate to be 35%. The left main coronary artery is nicely patent the left anterior descending is a medium caliber artery there is proximal calcification of the LAD and mild proximal atherosclerotic stenosis of about 30-40%. This is a tubular lesion in the proximal LAD that does not appear to be flow-limiting. the circumflex is a larger caliber vessel giving rise to the marginal branches and a posterior branch. There is mild 30-40% mid stenosis of the circumflex. The right coronary artery is large in caliber and dominant to the posterior circulation. The RCA has minimal luminal irregularities distally but there is no at flow-limiting disease identified angiographically. Conclusion:: 1. Right coronary dominant circulation with an no angiographically significant coronary artery disease, modest proximal LAD stenosis as noted above 2. left ventricular systolic dysfunction with mild LV enlargement and global ejection fraction approximately 35% by visual estimation Shaheen Luevano MD [facility]
== END 2023-06-27 17:00 | disposition home or self-care (01) ==
PROVIDERS: Visit Provider Specialist
PROC: 4A023N7 Measurement of Cardiac Sampling and Pressure, Left Heart, Percutaneous Approach (ICD-10-PCS; CPT 93452; principal; 2023-06-27 10:00)
DX: I50.1 Left ventricular failure, unspecified (principal); N40.0 Benign prostatic hyperplasia without lower urinary tract symptoms; R73.9 Hyperglycemia, unspecified; Z87.891 Personal history of nicotine dependence; Z87.442 Personal history of urinary calculi; Z85.46 Personal history of malignant neoplasm of prostate; Z82.49 Family history of ischemic heart disease and other diseases of the circulatory system; Z80.0 Family history of malignant neoplasm of digestive organs
CPT/HCPCS: 36415; 80048; 85025; 93458; C1887; C1894; J1644; J2250; J3010; J7040

== ENCOUNTER 2023-11-01 13:33 | Outpatient (CLI) | payer OTHER, SELFPAY ==
--- NOTE | 2023-11-01 | ECHO_ITS ---
Patient Info Name: Apolinar Ureña Age: 88 years : 1935 Gender: Male Ht: 67 in Wt: 145 lbs BSA: 1.77 m2 HR: 61 bpm BP: 118 / 55 mmHg Technical Quality: Good Exam Date: 11/01/2023 1:57 PM Exam Location: [facility] Lab Patient Status: Outpatient Admit Date: 11/01/2023 Staff Ordering Physician: Josué Waddell DO Slip Bridge Operator: Henrietta Nava RDCS Attending Provider: Josué Waddell DO Referring Physician: Bairon DANIEL; Exam Type: CA echo doppler color flow Study Info Indications I51.9 - Heart disease, unspecified Complete two-dimensional, color flow and Doppler transthoracic echocardiogram is performed. Summary 1. Complete two-dimensional, color flow and Doppler transthoracic echocardiogram is performed. 2. Left ventricular chamber dimension is mildly enlarged. 3. Left ventricular systolic function is mildly globally reduced, estimated at 45-50%. 4. The left ventricular diastolic function is grade I diastolic dysfunction. 5. E/e' 11 is mildly elevated. 6. Right atrial chamber dimension is mildly enlarged. 7. There is mild aortic valve sclerosis. 8. There is mild to moderate aortic valve regurgitation. 9. There is trace mitral valve regurgitation. 10. There is mild to moderate tricuspid valve regurgitation. 11. Mild pulmonary hypertension, estimated pulmonary arterial systolic pressure is 40 mmHg. 12. There is trace pulmonic regurgitation. Left Ventricle E/e' 11 is mildly elevated. Left ventricular systolic function is mildly globally reduced, estimated at 45-50%. Left ventricular chamber dimension is mildly enlarged. The left ventricular diastolic function is grade I diastolic dysfunction. Right Ventricle Right ventricular chamber dimension is normal. Right ventricular systolic function is normal. Left Atria Left atrial chamber dimension is normal. Right Atria Right atrial chamber dimension is mildly enlarged. Aortic Valve The aortic valve is trileaflet. There is mild aortic valve sclerosis. There is no aortic valve stenosis. There is mild to moderate aortic valve regurgitation. Pulmonic Valve There is trace pulmonic regurgitation. Mitral Valve There is no mitral valve stenosis. There is trace mitral valve regurgitation. Tricuspid Valve There is mild to moderate tricuspid valve regurgitation. Mild pulmonary hypertension, estimated pulmonary arterial systolic pressure is 40 mmHg. Pericardium/Pleural There is no pericardial effusion. Inferior Vena Cava Normal inferior vena cava with >50% collapse upon inspiration consistent with normal right atrial pressure, 5 mmHg. Aorta The aortic root size at the sinus of Valsalva is normal. Left Ventricular Outflow Tract Name Value Normal LVOT 2D LVOT Diameter 2.0 cm LVOT Doppler LVOT Peak Gradient 4 mmHg LVOT Mean Gradient 2 mmHg LVOT VTI 18 cm LVOT VTI/AV VTI Ratio 0.7 LVOT Stroke Volume 55 ml LVOT CO 3.3 l/min LVOT CI 1.9 l/min/m2 Pulmonic Valve Name
== END 2023-11-01 13:34 | disposition home or self-care (01) ==
PROVIDERS: Visit Provider Internal Medicine Cardiovascular Disease
DX: I08.3 Combined rheumatic disorders of mitral, aortic and tricuspid valves (principal)
CPT/HCPCS: 93306